=== PATIENT | male | born 1955 | race Two or more races ===

== ENCOUNTER 2025-04-08 08:34 | Emergency (ER) | payer MEDICARE ==
[2025-04-08] MEDS: Ketorolac 30 MG/ML SDV IM ONE (09:04)
== END 2025-04-08 10:00 | disposition home or self-care (01) ==
LOC: DL.ED 08:34
DX: M54.41 Lumbago with sciatica, right side (principal); M25.551 Pain in right hip
CPT/HCPCS: 72100; 73501; 96372; 99283; J1885